=== PATIENT | female | born 1985 | race Caucasian/White ===

== ENCOUNTER 2017-11-01 16:14 | Emergency (ER) | payer OTHER ==
[~2017-11-01] VITALS: Ht 165.1 cm; Wt 96.2 kg
[2017-11-01 16:25] VITALS: TEMP 36.9; Ht 165.1 cm; Wt 96.2 kg
--- NOTE | 2017-11-01 16:56 | EMERGENCY ROOM VISIT NOTE ---
ED Visit Note First contact with patient: 16:37 CHIEF COMPLAINT: Needle stick right thumb HISTORY OF PRESENT ILLNESS: This 32-year-old female patient presents to the emergency department, ambulatory, approximately 7 hours after experiencing a dirty needle stick injury while at work. 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 She had given the hepatitis B injection intramuscularly, and was attempting to slide the safety from the needle up over the needle. She states it did not slide, and she accidentally punctured the right thumb, drawing blood. The patient states there is very minimal pain, and she immediately washed the wound with soap and water. She states the baby was born this morning , and denies any known drug use of the mother, but she states the mother did not have any testing performed. The patient is right-handed. She denies any redness, swelling, or purulent drainage. Bleeding was easily controlled. She denies any numbness or tingling of the digit. She denies any weakness. She did speak with the patient's attending, Dr. Scott, and states the parents did consent to testing of the . REVIEW OF SYSTEMS: A 6 system review of systems was performed with positives and pertinent negatives listed in the history of present illness. All other systems were reviewed and are negative. ALLERGIES: Shellfish MEDICATIONS: OCPs, Wellbutrin, Zyrtec, B complex vitamin PMH: None SOCIAL HISTORY: Patient lives locally with family. She denies drug, alcohol, tobacco use. PHYSICAL EXAM: VITALS: Vitals are noted on the nurse's note and reviewed by myself. Vital signs stable. GENERAL: This is a 32-year-old white female, in no acute distress, nondiaphoretic, well-developed well-nourished. SKIN: Small puncture wound on the anterior aspect of the right thumb, on the distal phalanges. There is no active bleeding. There is no redness or cellulitic changes. There is no drainage. The skin was without rashes, erythema, edema, or bruising. There is no tenting of the skin. Capillary reflex less than 2 seconds. NECK: Supple without nuchal rigidity. No lymphadenopathy. No thyromegaly. Cervical spine is nontender. No JVD. HEART: Regular rate and rhythm without murmurs gallops or rubs. LUNGS: Clear to auscultation bilaterally without wheezes, rales or rhonchi. No dullness to percussion. No retractions or accessory muscle use. ABDOMEN: Positive bowel sounds x 4. Normal tympanic percussion. Soft, nontender, without masses or organomegaly. Farooq sign negative. No guarding or rebound tenderness. MUSCULOSKELETAL: No muscle atrophy, erythema, or edema noted. Full range of motion without joint tenderness in all extremities. No tenderness to palpation. Normal gait. Strength 5/5 throughout. NEURO: Patient was alert and oriented to person place and time. Normal sensation to light and sharp touch. No focal neurological deficits. EMERGENCY DEPARTMENT COURSE: The patient was seen and evaluated as above. This is considered a significant exposure due to the dirty needle injury, which did drop blood. I did contact Whitney Mckinney at [facility], however the office was closed. I left a message. The patient consented to baseline testing and all paperwork completed. Labs were drawn. The patient declined HIV prophylaxis. Discharge instructions reviewed, the patient was discharged home in good condition. I attest that I have personally reviewed the patient's current medication list. Blood Pressure Screening: Patient was found to have a slightly elevated blood pressure due to circumstances. I do not believe that the patient requires hypertension monitoring. Differential diagnosis: needlestick injury, work-place exposure, cellulitis, abscess, blood-borne pathogen exposure, and others DIAGNOSIS: needlestick injury of right thumb, work-place exposure. The chart was completed utilizing [employer] voice recognition software. Grammatical errors, random word insertions, pronoun errors, and incomplete sentences are an occasional consequence of this system due to software limitations, ambient noise, and hardware issues. Any formal questions or concerns about the content, text, or information contained within the body of this dictation should be directly addressed to the provider for clarification. Current/Historical Medications No Active Prescriptions or Reported Meds Allergies Coded Allergies: SHELLFISH (Verified Allergy, Severe, swelling, 02/19/15) Vital Signs Date Time Temp Pulse Resp B/P (MAP) Pulse Ox O2 Delivery O2 Flow Rate FiO2 11/01/17 17:12 77 16 124/80 100 11/01/17 16:25 36.9 96 18 168/132 97 Room Air Departure Information Impression Primary Impression: Needle stick injury of finger Additional Impression: Employee exposure to blood Dispostion Home / Self-Care Condition GOOD Prescriptions No Active Prescriptions or Reported Meds Referrals Whitney Mckinney (PCP) Patient Instructions My [facility], Pathogens Bloodborne If Exposed Additional Instructions You were seen in the emergency department today for a needlestick injury. Labs were drawn and will be sent to the lab for baseline testing. [facility] next week regarding ongoing management and results of lab testing. Proper wound care is essential for adequate wound healing and infection prevention. You can shower and clean the wound with soap and water. Do not scour over the wound, pat dry with a towel. Do not submerse the wound (i.e. bathe or dish wash) until the wound has fully healed. You can use an antibiotic ointment with a dressing over the wound for the next 3-4 days. After this time you may leave the wound dry and open to the air. Ibuprofen(Motrin, Advil) may be used for fever or pain. Use 400mg every six hours as needed. Take with food. Avoid using more than 2400mg in a 24 hour period. Do not use 2400mg per day for more than three consecutive days without physician direction. Prolonged inappropriate use can lead to stomach upset or ulcers. (AND/OR) Acetaminophen(Tylenol) may be used for fever or pain. Use 500mg every six hours as needed. Avoid using more than 3000mg in a 24 hour period. Return to the ED for any worsening or concerning symptoms. Problem Qualifiers Primary Impression: Needle stick injury of finger Encounter type: initial encounter Qualified Codes: S61.239A - Puncture wound without foreign body of unspecified finger without damage to nail, initial encounter; W27.3XXA - Contact with needle (sewing), initial encounter
[2017-11-01 17:12] VITALS: BP 124/80; PULSE 77; O2SAT 100
== END 2017-11-01 17:12 | disposition home or self-care (01) ==
LOC: C.EDB 16:15 → C.EDD 17:12
DX: S61.031A Puncture wound without foreign body of right thumb without damage to nail, initial encounter (principal); Z77.21 Contact with and (suspected) exposure to potentially hazardous body fluids; W46.0XXA Contact with hypodermic needle, initial encounter; Y93.89 Activity, other specified; Y99.0 Civilian activity done for income or pay; Y92.239 Unspecified place in hospital as the place of occurrence of the external cause; Z91.013 Allergy to seafood